=== PATIENT | female | born 1955 | race Caucasian/White ===

== ENCOUNTER → 2019-06-29 13:57 | Outpatient (BNVA) | payer OTHER, SELFPAY | PROVIDERS: Family Provider Internal Medicine; PCP Internal Medicine; Visit Provider Nurse Practitioner Psychiatric/Mental Health | DX: F41.0 Panic disorder [episodic paroxysmal anxiety] (principal); Z63.4 Disappearance and death of family member; F33.1 Major depressive disorder, recurrent, moderate; F17.210 Nicotine dependence, cigarettes, uncomplicated; M79.7 Fibromyalgia | CPT/HCPCS: 99213 ==

== ENCOUNTER → 2019-08-03 10:51 | Outpatient (BNVA) | payer OTHER, SELFPAY | PROVIDERS: Family Provider Internal Medicine; PCP Internal Medicine; Visit Provider Nurse Practitioner Psychiatric/Mental Health | DX: F33.1 Major depressive disorder, recurrent, moderate (principal); F41.0 Panic disorder [episodic paroxysmal anxiety]; Z63.4 Disappearance and death of family member; F33.2 Major depressive disorder, recurrent severe without psychotic features | CPT/HCPCS: 99213 ==

== ENCOUNTER 2019-08-21 15:00 | Outpatient (CLI) | payer OTHER, SELFPAY ==
--- NOTE | 2019-08-21 15:01 | MM_ITS ---
WS: [id number] BILATERAL DIGITAL SCREENING MAMMOGRAPHY WITH CAD CLINICAL INFORMATION: SCREENING HISTORY: Screening mammogram. No current complaints. COMPARISON: March 19, 2018 TECHNIQUE: Bilateral CC and MLO views. FINDINGS: Scattered fibroglandular densities bilaterally. No suspicious focal mass, asymmetry, calcifications, or architectural distortion. Biopsy clip left breast. No evidence of malignancy. MM/[place] [id number] IMPRESSION: BI-RADS: 2-Benign FOLLOW UP: 1 Year Follow-up Recommend return to annual screening mammography.
== END 2019-08-21 15:01 | disposition home or self-care (01) ==
LOC: RADSHAW 15:00
PROVIDERS: Family Provider Internal Medicine; PCP Internal Medicine; Visit Provider Internal Medicine
DX: Z12.31 Encounter for screening mammogram for malignant neoplasm of breast (principal)
CPT/HCPCS: 77067

== ENCOUNTER → 2019-09-24 08:01 | Outpatient (BNVA) | payer OTHER, SELFPAY | PROVIDERS: Family Provider Internal Medicine; PCP Internal Medicine; Visit Provider Nurse Practitioner Psychiatric/Mental Health | DX: F33.1 Major depressive disorder, recurrent, moderate (principal); F41.0 Panic disorder [episodic paroxysmal anxiety]; Z63.4 Disappearance and death of family member; M79.7 Fibromyalgia | CPT/HCPCS: 99214 ==

== ENCOUNTER → 2019-10-21 08:19 | Outpatient (BNVA) | payer OTHER, SELFPAY | PROVIDERS: Family Provider Internal Medicine; PCP Internal Medicine; Visit Provider Nurse Practitioner Psychiatric/Mental Health | DX: F33.1 Major depressive disorder, recurrent, moderate (principal); F41.0 Panic disorder [episodic paroxysmal anxiety]; Z63.4 Disappearance and death of family member; M79.7 Fibromyalgia | CPT/HCPCS: 99214 ==

== ENCOUNTER 2020-02-10 14:27 | Outpatient (CLI) | payer OTHER, SELFPAY ==
--- NOTE | 2020-02-10 14:35 | XR_ITS ---
WS: [id number] DEXA (DUAL ENERGY X-RAY ABSORPTIOMETRY) Bone mineral density was performed using a [employer]SC[employer] machine. HISTORY: ASYMPTOMATIC POSTMENOPAUSAL STATUS COMPARISON: None available. Lumbar spine BMD (L1-L4): 0.814 g/cm2 T score: -3.0 Z score: -1.9 Total hip BMD: Left: 0.709 g/cm2. T score: -2.4 Z score: -1.5 Right: 0.670 g/cm2. T score: -2.7 Z score: -1.8 10 year probability of a major osteoporotic fracture is 16%. XR/XR DEXA axial skeleton* [id number] IMPRESSION: OSTEOPOROSIS based upon the WHO classification for females.
== END 2020-02-10 14:28 | disposition home or self-care (01) ==
LOC: RADWPI 14:33
PROVIDERS: Family Provider Internal Medicine; PCP Internal Medicine; Visit Provider Internal Medicine
DX: Z78.0 Asymptomatic menopausal state (principal); M81.0 Age-related osteoporosis without current pathological fracture
CPT/HCPCS: 77080

== ENCOUNTER 2020-02-17 11:14 | Outpatient (CLI) | payer OTHER, SELFPAY ==
--- NOTE | 2020-02-17 11:25 | XR_ITS ---
WS: [id number] THORACIC SPINE TECHNIQUE: 3 views of the thoracic spine CLINICAL INFORMATION: BACK PAIN COMPARISON: None. FINDINGS: Osteopenia. Mild thoracic curve convex right. Mild thoracic kyphosis. Chronic anterior wedging in the upper thoracic spine. No acute appearing compression fractures. XR/XR thoracic spine 3V* [id number] IMPRESSION: 1. Osteopenia with mild thoracic curve convex right. Mild thoracic kyphosis. 2. Chronic appearing anterior wedging in the upper thoracic spine. 3. No acute appearing compression fractures.
--- NOTE | 2020-02-17 11:25 | XR_ITS ---
WS: [id number] LUMBAR SPINE TECHNIQUE: 3 views of the lumbar spine CLINICAL INFORMATION: BACK PAIN COMPARISON: None. FINDINGS: Osteopenia. Mild lumbar curve convex left. 5 nonrib-bearing lumbar vertebral bodies. Grade 1 anteroli sthesis L4 on L5 measuring 7.3 mm. Disc space narrowing worse L4-L5 and L5-S1. No acute appearing com pression fractures. Moderate facet arthropathy L4-L5 and L5-S1. XR/XR lumbar spine 2-3V* [id number] IMPRESSION: 1. Osteopenia. Mild lumbar curve convex left. 2. Grade 1 anterolisthesis L4 on L5 measuring 7.3 mm. 3. Disc space narrowing worse L4-L5 and L5-S1.
== END 2020-02-17 11:15 | disposition home or self-care (01) ==
LOC: RAD 11:17
PROVIDERS: Family Provider Internal Medicine; PCP Internal Medicine; Visit Provider Internal Medicine
DX: M54.6 Pain in thoracic spine (principal); M54.5 Low back pain; M85.88 Other specified disorders of bone density and structure, other site; M40.294 Other kyphosis, thoracic region
CPT/HCPCS: 72072; 72100

== ENCOUNTER 2020-09-16 11:12 | Outpatient (CLI) | payer OTHER, SELFPAY ==
--- NOTE | 2020-09-16 11:22 | XR_ITS ---
WS: [id number] Lumbar spine, AP and lateral views, 09/16/2020 Clinical Data: BACK PAIN WITH RADICULOPATHY, ARTHRODESIS STATUS Comparison: Lumbar spine, 02/17/2020. Findings: The patient has had a posterior lumbar fusion with bilateral pedicle screws at L4, L5 and S1. There a re rods connecting the pedicle screws. Laminectomy at L4 is noted. The 0.7 cm subluxation of L4 on L5 remains the same. There is degenerative disc narrowing at L4-L5 and L5-S1. The SI joints and transverse processes are not remarkable. XR/XR lumbar spine 2-3V* [id number] Impression: 1. Posterior lumbar fusion from L4 through S1. 2. Subluxation of L4 on L5 unchanged. 3. Degenerative disc narrowing at L4-L5 and L5-S1 unchanged.
== END 2020-09-16 11:13 | disposition home or self-care (01) ==
PROVIDERS: PCP Internal Medicine; Visit Provider Surgery
DX: Z98.1 Arthrodesis status (principal); M54.10 Radiculopathy, site unspecified; M43.27 Fusion of spine, lumbosacral region; S33.140A Subluxation of L4/L5 lumbar vertebra, initial encounter; X58.XXXA Exposure to other specified factors, initial encounter
CPT/HCPCS: 72100

== ENCOUNTER 2022-04-13 13:40 | Outpatient (CLI) | payer MEDICARE, SELFPAY ==
--- NOTE | 2022-04-13 13:48 | MM_ITS ---
WS: [id number] BILATERAL 3D TOMOSYNTHESIS DIGITAL SCREENING MAMMOGRAPHY WITH CAD CLINICAL INFORMATION: SCREENING HISTORY: Screening mammogram. No current complaints. COMPARISON: August 21, 2019 TECHNIQUE: Bilateral CC and MLO views. FINDINGS: Scattered fibroglandular densities bilaterally. A few incidental hepatic calcifications are stable. B iopsy clip LEFT breast. No suspicious focal mass, asymmetry, calcifications, or architectural distort ion. No evidence of malignancy. MM/[place] [id number] IMPRESSION: BI-RADS: 2-Benign FOLLOW UP: 1 Year Follow-up Recommend return to annual screening mammography.
--- NOTE | 2022-04-13 14:08 | XR_ITS ---
WS: [id number] DEXA (DUAL ENERGY X-RAY ABSORPTIOMETRY) Bone mineral density was performed using a [employer] machine. HISTORY: OSTEOPOROSIS COMPARISON: 02/10/2020 Prior lumbar spine surgery with hardware. Total hip BMD: Left: 0.734 g/cm2. T score: -2.2 Z score: -1.3 Right: 0.700 g/cm2. T score: -2.4 Z score: -1.5 10 year probability of a major osteoporotic fracture is 22.5%. Compared to the prior study from 02/10/2020. Bilateral hips bone mineral density has increased by 4.1%. XR/XR DEXA axial skeleton* [id number] IMPRESSION: OSTEOPENIA based upon the WHO classification for females.
== END 2022-04-13 13:41 | disposition home or self-care (01) ==
LOC: RAD 13:41
PROVIDERS: PCP Internal Medicine; Visit Provider Internal Medicine
DX: Z12.31 Encounter for screening mammogram for malignant neoplasm of breast (principal); M85.80 Other specified disorders of bone density and structure, unspecified site
CPT/HCPCS: 77063; 77067; 77080

== ENCOUNTER 2022-10-10 14:56 | Outpatient (CLI) | payer MEDICARE, SELFPAY ==
--- NOTE | 2022-10-10 15:03 | CT_ITS ---
WS: [id number] LDCT LUNG CANCER SCREENING TECHNIQUE: Noncontrast CT of the chest with coronal and sagittal reformatted images. CLINICAL INFORMATION: TOBACCO ABUSE, CONTINUOUS COMPARISON: None. DLP: 73.32 mGy.cm DIvol: Mean CTDIvol: 1.60 (mGy) All CT scans at [facility] use at least one of these dose optimization techniques: automat ed exposure control; mA and/or kV adjustment per patient size (includes targeted exams where dose is matched to clinical indication); or iterative reconstruction. FINDINGS:Bronchiectasis RIGHT lower lobe with parenchymal scarring. Moderate chronic emphysematous ch anges. Minimal scarring in the lingula. Slight hazy opacity in the LEFT upper lobe Normal caliber thoracic aorta. No mediastinal or hilar lymphadenopathy. Calcified paratracheal and olguin bcarinal lymph nodes. Calcified RIGHT hilar lymph nodes. Normal caliber thoracic aorta. Adrenal glands are normal. Hepatomegaly. Partially visualized LEFT renal cyst. No axillary lymphadeno aftab. Mild thoracic curve. Mild thoracic kyphosis. CT/CT lung screening [id number] IMPRESSION: LUNG-RADS: 2-Benign Appearance or Behavior FOLLOW UP: 12 Month: Continue annual screening with LDCT
== END 2022-10-10 14:57 | disposition home or self-care (01) ==
PROVIDERS: PCP Internal Medicine; Visit Provider Internal Medicine
DX: J43.9 Emphysema, unspecified (principal); Z87.891 Personal history of nicotine dependence; N28.1 Cyst of kidney, acquired
CPT/HCPCS: 71271

== ENCOUNTER → 2023-02-13 14:59 | Outpatient (BNVA) | payer MEDICARE, SELFPAY | PROVIDERS: Referring Provider Internal Medicine; Visit Provider Internal Medicine | DX: R68.89 Other general symptoms and signs (principal); E78.5 Hyperlipidemia, unspecified; Z68.30 Body mass index [BMI] 30.0-30.9, adult | CPT/HCPCS: 99204 ==

== ENCOUNTER 2023-04-23 11:45 | Outpatient (CLI) | payer MEDICARE, OTHER, SELFPAY ==
--- NOTE | 2023-04-23 11:59 | MM_ITS ---
WS: [id number] Bilateral screening 3D tomosynthesis digital mammogram, 04/23/2023 Clinical Data: SCREENING Comparison: 04/13/2022, 08/21/2019, 06/19/2017, 12/27/2016, 12/23/2015, 07/25/2015, 11/23/2013, 08/20/2012, 011, 04/18/2010, 03/16/2009, 01/13/2008, 02/14/2006 Findings: The breast parenchymal pattern shows fibroglandular tissue. No spiculated masses or clustered calcifi cations are seen. There are no secondary signs of carcinoma. Impression: 1. Negative bilateral mammogram unchanged. 2. Recommend annual screening mammograms. MM/[place] [id number] BIRADS: 1-Negative FOLLOW UP: 1 Year Follow-up The CAD credit rating checker was used.
== END 2023-04-23 11:46 | disposition home or self-care (01) ==
LOC: RAD 11:47
PROVIDERS: PCP Internal Medicine; Visit Provider Internal Medicine
DX: Z12.31 Encounter for screening mammogram for malignant neoplasm of breast (principal)
CPT/HCPCS: 77063; 77067

== ENCOUNTER → 2023-06-26 09:45 | Outpatient (BNVA) | payer MEDICARE, OTHER, SELFPAY | PROVIDERS: PCP Internal Medicine; Visit Provider Internal Medicine | DX: E78.5 Hyperlipidemia, unspecified (principal); R68.89 Other general symptoms and signs; Z68.24 Body mass index [BMI] 24.0-24.9, adult; Z79.85 Long-term (current) use of injectable non-insulin antidiabetic drugs | CPT/HCPCS: 99214 ==

== ENCOUNTER 2024-08-19 09:33 | Outpatient (CLI) | payer MEDICARE, OTHER, SELFPAY ==
--- NOTE | 2024-08-19 09:39 | MM_ITS ---
WS: [id number] BILATERAL SCREENING DIGITAL TOMOSYNTHESIS MAMMOGRAM WITH CAD HISTORY: SCREEN COMPARISON: 04/23/2023, 04/13/2022 Bilateral CC and MLO views with tomosynthesis and synthetic mammography submitted. Computer aided detection analyzed. Breast composition: There are scattered areas of fibroglandular density. No suspicious masses, microcalcifications or architectural distortion. Benign calcifications in each breast. Prior biopsy clip in the anterior LEFT breast. MM/MM scr BI tomosynthesis [id number] IMPRESSION: BI-RADS: 2 - Benign. FOLLOW UP: 1 Year Follow-up
== END 2024-08-19 09:34 | disposition home or self-care (01) ==
LOC: RAD 09:34
PROVIDERS: PCP Internal Medicine; Visit Provider Internal Medicine
DX: Z12.31 Encounter for screening mammogram for malignant neoplasm of breast (principal); J44.9 Chronic obstructive pulmonary disease, unspecified; R94.2 Abnormal results of pulmonary function studies; R92.323 Mammographic fibroglandular density, bilateral breasts; R92.1 Mammographic calcification found on diagnostic imaging of breast
CPT/HCPCS: 77063; 77067; 94010; 94726; 94729

== ENCOUNTER 2024-12-18 03:43 | Emergency (ER) | payer MEDICARE, OTHER, SELFPAY ==
[2024-12-18 03:46] VITALS: BP 170/99; PULSE 82; RESP 16; TEMP 36.6; O2SAT 95
--- OUTSIDE RECORDS SUMMARY | 2024-12-18 03:53 | XMS_ITS | Clinical Summary ---
Author Organization [facility] Address [address] [place] [address] Care Team Providers Care Grades 1 Through 5 Teacher Name Role Phone Diana Hall MD Primary Care Provider +1- [phone] Allergies Active Allergy Reactions Criticality Noted Date Comments Morphine Other (See Comments) 03/11/2012 Depression. Can take for a short time. Nalbuphine Other (See Comments) 03/11/2012 hallucinations Penicillins Swelling Low 03/11/2012 Medications telmisartan (MICARDIS) 80 mg Oral Tab Take 80 mg by mouth daily. Active simvastatin (ZOCOR) 20 mg Oral tablet Take 20 mg by mouth Daily LATE. Active oxyCODONE CR (OXYCONTIN) 80 mg Oral tablet Take 80 mg by mouth every 12 hours. Active oxyCODONE-acetam inophen (PERCOCET) 10-325 mg Oral Tab Take 1 Tab by mouth 4 times daily as needed. Active aspirin (LOS) 81 mg Oral Tab Take by mouth. Active ibuprofen (IBUPROFEN IB) 200 mg Oral tablet Take 200 mg by mouth every 6 hours as needed. Active naproxen sodium (ALEVE) 220 mg Oral Cap Take by mouth. prn Active ALPRAZolam (XANAX) 1 mg Oral tablet Take 1 mg by mouth 3 times daily as needed. Active Active Problems Problem Noted Date Diagnosed Date Low back pain radiating to right leg 03/11/2012 Lumbar spinal stenosis 03/11/2012 Degenerative spondylolisthesis 03/11/2012 Herniated lumbar intervertebral disc 03/11/2012 Family History Medical History Relation Name Comments Cancer Father Heart Disease Father Cancer Maternal Grandfather Heart Disease Maternal Grandmother Cancer Paternal Grandfather Heart Disease Paternal Grandfather Heart Disease Paternal Grandmother Relation Name Status Comments Father Maternal Grandfather Maternal Grandmother Paternal Grandfather Paternal Grandmother Social History Tobacco Use Types Packs/Day Years Used Date Smoking Tobacco: Every Day Cigarettes 0.5 0.5 Smokeless Tobacco: Never Alcohol Use Standard Drinks/Week Comments No 0 (1 standard drink = 0.6 oz pur e alcohol) Comments Unknown Sex and Gender Information Value Date Recorded Sex Assigned at Not on file Legal Sex Female 5:48 AM 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 RN Gender Identity Not on file Sexual Orientation Not on file Occupation Industry Job Start Date Job End Date Not on file Not on file Not on file Not on file Last Filed Vital Signs Vital Sign Reading Time Taken Comments Blood Pressure 110/60 10/31/2012 1:14 PM CDT Pulse 100 10/31/2012 1:14 PM CDT Temperature 36.7 C (98.1 F) 10/31/2012 1:14 PM CDT Respiratory Rate 16 10/31/2012 1:14 PM CDT Oxygen Saturation 98% 10/31/2012 1:14 PM CDT Inhaled Oxygen Concentration - - Weight 59 kg (130 lb) 10/31/2012 1:14 PM CDT Height 162.6 cm (5' 4 ) 10/31/2012 1:14 PM CDT Body Mass Index 22.31 10/31/2012 1:14 PM CDT Plan of Treatment Health Maintenance Due Date Last Done Comments DTAP/TDAP/TD VACCINES (1 - Tdap) 1976 PNEUMOCOCCAL VACCINE 50+ YEARS (1 of 2 - PCV) 03/18/19 76 BREAST CANCER SCREENING 1997 COLORECTAL SCREENING 2002 Colorectal Cancer Screening 2002 FIT-DNA Q 3 years 2002 FIT/FOBT Q 1 year 2002 Flex Sig/CT Colonography Q 5 years 2002 ZOSTER VACCINE (1 of 2) 2007 OSTEOPOROSIS SCREENING 2022 INFLUENZA VACCINE (#1) 2024 RSV VACCINE (60+ or ) (1 - 1-dose 75+ series) 2032 Insurance [facility] Care Teams Grades 1 Through 5 Teacher Relationship Specialty Start Date End Date Diana Hall MD [address] [place] [address] PCP - General Internal Medicine 03/11/12
--- OUTSIDE RECORDS SUMMARY | 2024-12-18 03:53 | XMS_ITS | Encounter Summary ---
Author Organization [facility] Address [address] [place] [address] Care Team Providers Care Engraved Roller Inspector Name Role Phone Diana Hall MD Primary Care Provider +1- [phone] Encounter Details Date Type Department Care Team (Latest Contact Info) Description 11/14/2001 Outpatient Historical [facility] Rheumatology- [place] Brennen Dee [address] [place] [address] María Elena Graves MD [address] [place] [address] RHEUMATISM NOS (Primary Dx) Social History Tobacco Use Types Packs/Day Years Used Date Smoking Tobacco: Never Assessed Comments Unknown Sex and Gender Information Value Date Recorded Sex Assigned at Not on file Legal Sex Female 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
--- OUTSIDE RECORDS SUMMARY | 2024-12-18 03:53 | XMS_ITS | Encounter Summary ---
Author Organization [employer] [facility] Address [address] [place] [address] Care Team Providers Care Furnace Repair Mechanic Name Role Phone Diana Hall MD Primary Care Provider +1- [phone] Encounter Details Date Type Department Care Team (Latest Contact Info) Description 03/13/2002 Outpatient Historical [facility] Jesus Sal MD [address] [place] [id number] MYALGIA AND MYOSITIS NOS (Primary Dx) Social History Tobacco Use Types Packs/Day Years Used Date Smoking Tobacco: Never Assessed Comments Unknown Sex and Gender Information Value Date Recorded Sex Assigned at Not on file Legal Sex Female 5:48 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
--- OUTSIDE RECORDS SUMMARY | 2024-12-18 03:53 | XMS_ITS | Encounter Summary ---
Author Organization [facility] Address [address] [place] [address] Care Team Providers Care Aquacultural Worker Supervisor Name Role Phone Diana Hall MD Primary Care Provider +1- [phone] Encounter Details Date Type Department Care Team (Latest Contact Info) Description 03/10/[address] 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
--- NOTE | 2024-12-18 03:55 | W.ED.DENTAL ---
HPI - Dental/Oral General: Chief complaint: Dental/Oral Stated complaint: R side upper tooth pain up and to eye Time Seen by Provider: 12/18/24 03:45 History of Present Illness: Right upper dental pain x 1 day. No fever. No nausea or vomiting. Patient states that the tooth is always been fairly sensitive but over the last 24 hours has become increasingly painful. Related Data Home Medications ?Medication ?Instructions ?Recorded ?Confirmed telmisartan 80 mg tablet (Micardis) 80 mg PO DAILY 06/29/19 09/13/23 simvastatin 20 mg tablet 20 mg PO DAILY 11/11/19 09/13/23 Previous Rx's ?Medication ?Instructions ?Recorded duloxetine 30 mg capsule,delayed 30 mg PO .morning #30 caps 10/21/19 release (Cymbalta) diazepam 2 mg tablet 2 mg PO BID PRN anxiety #60 tabs 11/12/19 liraglutide 0.6 mg/0.1 mL (18 mg/3 1.8 mg (0.3 mL) SUBCUT DAILY 30 05/21/23 mL) subcutaneous pen injector days #6 mL (Victoza 2-Brenton) valacyclovir 1 gram tablet 1,000 mg PO Q8H 10 days #30 tabs 08/31/23 hydrocodone 7.5 mg-acetaminophen 1 tab PO Q6H PRN pain 7 days #28 09/13/23 325 mg tablet tabs clindamycin HCl 300 mg capsule 300 mg PO Q6H 10 days #40 caps 12/18/24 (Cleocin HCl) Allergies Allergy/AdvReac Type Severity Reaction Status Date / Time morphine Allergy Intermediate Mde Verified 09/13/23 09:58 depressed nalbuphine (From Nubain) Allergy Intermediate Hallucinati Verified 09/13/23 09:58 ons Penicillins Allergy Intermediate Swelling & Verified 09/13/23 09:58 hives PFS ED PFSH: Medical History Fibromyalgia Major depressive disorder, recurrent, moderate Panic disorder without agoraphobia of parent Social History Smoking and tobacco/nicotine status: current every day tobacco/nicotine user cigarettes Physical Exam Const: COMMON NORMALS: no acute distress, average body habitus, patient oriented x3, no limitations, healthy appearing, alert and well nourished HENMT: OTHER: Right upper molar with tenderness. Erythema around the gumline without any obvious abscess. Neck/C-Spine: COMMON NORMALS: full ROM, no lymphadenopathy, supple, no meningeal signs, Thyroid normal and No carotid bruits THYROID: Thyroid normal Resp: COMMON NORMALS: normal respiratory effort, No retractions, No use of accessory muscles, clear to auscultation bilaterally and percussion normal AUSCULTATION: clear to auscultation bilaterally PERCUSSION: percussion normal Neuro: COMMON NORMALS: patient oriented x3 SENSORIUM/ORIENTATION: Yes alert MENINGEAL SIGNS: Yes no meningeal signs Course Vital Signs: Vital signs: Vital Signs Temperature 97.8 F 12/18/24 03:46 Pulse Rate 82 12/18/24 03:46 Respiratory Rate 16 12/18/24 03:46 Blood Pressure 170/99 12/18/24 03:46 Pulse Oximetry 95 12/18/24 03:46 Oxygen Delivery Me thod Room Air 12/18/24 03:46 MDM - Dental/Oral Medical Decision Making Patient with right upper dental pain likely infection x 1 day. Due to penicillin allergy will start on clindamycin. Recommended patient follow-up with dentist soon as possible. See no evidence of abscess that needs drained at this time. No trismus or evidence of peritonsillar retropharyngeal abscess. No Shola's angina. No difficulty swallowing or breathing. No radiology studies performed this visit Discharge Plan Discharge Patient Disposition: Home Clinical Impression: Dental infection Condition: Stable Prescriptions: New clindamycin HCl [Cleocin HCl] 300 mg capsule 300 mg PO Q6H 10 Days Qty: 40 0RF No Action telmisartan [Micardis] 80 mg tablet 80 mg PO DAILY duloxetine [Cymbalta] 30 mg capsule,delayed release(DR/EC) 30 mg PO .morning Qty: 30 3RF Rx Instructions: Take one capsule every morning simvastatin 20 mg tablet 20 mg PO DAILY diazepam 2 mg tablet 2 mg PO BID PRN (Reason: anxiety) Qty: 60 0RF valacyclovir 1 gram tablet 1,000 mg PO Q8H 10 Days Qty: 30 0RF hydrocodone-acetaminophen 7.5-325 mg tablet 1 tab PO Q6H PRN (Reason: pain) 7 Days Qty: 28 0RF Victoza 2-Brenton 0.6 mg/0.1 mL (18 mg/3 mL) pen injector 1.8 mg SUBCUT DAILY 30 Days Qty: 6 1RF Discharge Orders: Discharge ED (Routine); Ordered 12/18/24 Ordered By: Kaiser Bernal Referrals: Diana Hall MD [Primary Care Provider, Internal Medicine] Discharge Diet: Advance as tolerated Patient Instructions: Opioid Safety, Pain Management, Patient Portal & Elida Instructions Print Language: Mauritian Coding Level of Care Code ED Hot Saw Operator for Brenna Raines
[2024-12-18] MEDS: HYDROcodone-acetaminophen 5-325 mg Tablet 1 TAB PO (04:00)
[2024-12-18 04:05] VITALS: BP 136/94; PULSE 76; O2SAT 96
== END 2024-12-18 04:07 | disposition home or self-care (01) ==
PROVIDERS: Emergency Provider Emergency Medicine; PCP Internal Medicine
DX: K04.7 Periapical abscess without sinus (principal); F17.210 Nicotine dependence, cigarettes, uncomplicated; K02.9 Dental caries, unspecified
CPT/HCPCS: 99283; J9999

== ENCOUNTER 2024-12-18 08:05 | Emergency (ER) | payer MEDICARE, OTHER, SELFPAY ==
--- OUTSIDE RECORDS SUMMARY | 2024-12-18 08:09 | XMS_ITS | Clinical Summary ---
Author Organization [facility] Address [address] [place] [address] Care Team Providers Care Collector Of Port Name Role Phone Diana Hall MD Primary Care Provider +1- [phone] Allergies Active Allergy Reactions Criticality Noted Date [...] on file Legal Sex Female 5:48 AM HOGSHEAD ROLLER Gender Identity Not on file Sexual Orientation [...] 2007 OSTEOPOROSIS SCREENING 2022 INFLUENZA VACCINE (#1) 2025 RSV VACCINE (60+ or ) (1 - 1-dose 75+ series) 2032 Insurance [facility] Care Teams Collector Of Port Relationship Specialty Start Date End Date Diana Hall MD [address] [place] [address] PCP - General Internal Medicine 03/11/12
--- OUTSIDE RECORDS SUMMARY | 2024-12-18 08:09 | XMS_ITS | Encounter Summary ---
Author Organization [facility] Address [address] [place] [address] Care Team Providers Care Pattern Cutter Name Role Phone Diana Hall MD Primary Care Provider +1- [phone] Encounter Details Date Type Department Care Team (Latest Contact Info) Description 03/10/2002 Outpatient Historical [facility] Rheumatology- [place] Brennen Dee [address] [place] [address] María Elena Graves MD [address] [place] [address] RHEUMATISM NOS (Primary Dx) Social History Tobacco Use Types Packs/Day Years Used Date Smoking Tobacco: Never Assessed Comments Unknown Sex and Gender Information Value Date Recorded Sex Assigned at Not on file Legal Sex Female 5:48 AM BRIDAL GOWN FITTER Gender Identity Not on file Sexual Orientation Not on file documented as of this encounter Plan of Treatment Not on file documented as of this encounter Visit Diagnoses Diagnosis Rheumatism, unspecified and fibrositis- Primary documented in this encounter Care Teams Pattern Cutter Relationship Specialty Start Date End Date Diana Hall MD [address] [place], [place] [address] PCP - General Internal Medicine 03/11/12 documented as of this encounter
--- OUTSIDE RECORDS SUMMARY | 2024-12-18 08:09 | XMS_ITS | Encounter Summary ---
Author Organization [facility] Address [address] [place] [address] Care Team Providers Care Mirror Department Supervisor Name Role Phone Diana Hall MD Primary Care Provider +1- [phone] Encounter Details Date Type Department Care Team (Latest Contact Info) Description 11/14/2001 Outpatient Historical [facility] Rheumatology- [place] Brennen Dee [address] [place] [address] María Elena Graves MD [address] [place] [address] RHEUMATISM NOS (Primary Dx) Social History Tobacco Use Types Packs/Day Years Used Date Smoking Tobacco: Never Assessed Comments Unknown Sex and Gender Information Value Date Recorded Sex Assigned at Not on file Legal Sex Female 5:48 AM 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
--- OUTSIDE RECORDS SUMMARY | 2024-12-18 08:09 | XMS_ITS | Encounter Summary ---
Author Organization [employer] [facility] Address [address] [place] [address] Care Team Providers Care Hot Metal Charger Name Role Phone Diana Hall MD Primary Care Provider +1- [phone] Encounter Details Date Type Department Care Team (Latest Contact Info) Description 03/13/2002 Outpatient Historical [facility] Jesus Sal MD [address] [place] [id number] MYALGIA AND MYOSITIS NOS (Primary Dx) Social History Tobacco Use Types Packs/Day Years Used Date Smoking Tobacco: Never Assessed Comments Unknown Sex and Gender Information Value Date Recorded Sex Assigned at Not on file Legal Sex Female 5:48 AM VELVET CUTTER Gender Identity Not on file Sexual Orientation Not on file documented as of this encounter Plan of Treatment Not on file documented as of this encounter Visit Diagnoses Diagnosis Myalgia and myositis, unspecified- Primary Mylagia and myositis, unspecified documented in this encounter Care Teams Hot Metal Charger Relationship Specialty Start Date End Date Diana Hall MD [address] [place] [address] PCP - General Internal Medicine 03/11/12 documented as of this encounter
[2024-12-18 08:16] VITALS: BP 146/91; PULSE 78; RESP 18; TEMP 37.1; O2SAT 96; BMI 30.1
--- NOTE | 2024-12-18 08:33 | ED_ITS ---
HPI - Dental/Oral General: Chief complaint: Dental/Oral Stated complaint: dental Time Seen by Provider: 12/18/24 08:12 History of Present Illness: 69-year-old female seen earlier today wi th infection in her right maxilla with some swelling extending up towards the zygomatic arch antibiotics were sent and unfortunately the pharmacy is not open. She was complaining of increasing pain. No fever. Associated symptoms: Denies fever(s) Related Data Home Medications ?Medication ?Instructions ?Recorded ?Confirmed telmisartan 80 mg tablet (Micardis) 80 mg PO DAILY 09/13/23 simvastatin 20 mg tablet 20 mg PO DAILY 11/11/1908/16 Previous Rx's ?Medication ?Instructions ?Recorded duloxetine 30 mg capsule,delayed 30 mg PO .morning #30 caps 10/21/19 release (Cymbalta) diazepam 2 mg tablet 2 mg PO BID PRN anxiety #60 tabs 11/12/19 liraglutide 0.6 mg/0.1 mL (18 mg/3 1.8 mg (0.3 mL) SUB CUT DAILY 30 05/21/23 mL) subcutaneous pen injector days #6 mL (Victoza 2-Brenton) valacyclovir 1 gram tablet 1,000 mg PO Q8H 10 days #30 tabs 08/31/23 hydrocodone 7.5 mg-acetaminophen 1 tab PO Q6H PRN pain 7 days #28 09/13/23 325 mg tablet tabs clindamycin HCl 300 mg capsule 300 mg PO Q6H 10 days # 40 caps 12/18/24 (Cleocin HCl) clindamycin HCl 300 mg capsule 300 mg PO Q6H 10 days # 40 caps 12/18/24 (Cleocin HCl) hydrocodone 5 mg-acetaminophen 325 1 tab PO Q6H PRN pa in #12 tabs 25 mg tablet Allergies Allergy/AdvReac Type Severity Reaction Status Date / Time morphine Allergy Intermediate Mde Verified 09/13/23 09:58 depressed nalbuphine (From Nubain) Allergy Intermediate Hallucinati Verified 09/13/23 09:58 ons Penicillins Allergy Intermediate Swelling & Verified 09/13/23 09:58 hives Review of Systems Const: Denies: fever(s) or chills Card: Denies: chest pain Resp: Denies: dyspnea GI: Denies: abdominal pain : Denies: dysuria, urinary frequency or urinary urgency Musc: Denies: neck pain or back pain Skin/Breast: Denies: rash PFSH ED PFSH: Medical History Fibromyalgia Major depressive disorder, recurrent, moderate Panic disorder without agoraphobia of parent Social History Smoking and tobacco/nicotine status: current every day tobacco/nicotine user cigarettes Physical Exam Const: COMMON NORMALS: no acute distress GENERAL APPEARANCE: cooperative and comfortable ORIENTATION/CONSCIOUSNESS: Yes awake, Yes oriented to person, Yes oriented to place and Yes oriented to time HENMT: COMMON NORMALS: normocephalic and hearing grossly normal bilaterally HEAD & SCALP: normocephalic OTHER: Moderate swelling along zygomatic arch extending up to the eye tender to touch along the upper maxilla on the right. No gingival abscess noted in the mouth. Resp: COMMON NORMALS: normal respiratory effort, No retractions, No use of accessory muscles and clear to auscultation bilaterally AUSCULTATION: clear to auscultation bilaterally Cardio: COMMON NORMALS: regular rate, regular rhythm and No murmurs present (Cardio) RATE: regular rate RHYTHM: regular rhythm GI: COMMON NORMALS: Soft to palpation and No hepatosplenomegaly present AUSCULTATION: Yes normoactive bowel sounds PALPATION: Yes Soft to palpation, No Tenderness to palpation present (GI), No Guarding due to palpation present (GI) and Yes No hepatosplenomegaly present Extremity: COMMON NORMALS: normal to inspection, capillary refill normal, no clubbing, cyanosis or edema, no calf tenderness and no pedal edema Neuro: SENSORIUM/ORIENTATION: Yes oriented to person, Yes oriented to place and Yes oriented to time Skin: COMMON NORMALS: no rashes or lesions noted GENERAL SKIN EXAM: no rashes or lesions noted Course Vital Signs: Vital signs: Vital Signs Temperature 98.7 F 12/18/24 08:16 Pulse Rate 78 12/18/24 08:16 Respiratory Rate 18 12/18/24 08:16 Blood Pressure 146/91 12/18/24 08:16 Pulse Oximetry 96 12/18/24 08:16 Oxygen Delivery Me thod Room Air 12/18/24 08:16 MDM - Dental/Oral Medical Decision Making Represcribed medications to pharmacy that is open. Patient has not had significant deterioration since last seen and reviewed the notes continue medications previously prescribed. Medical Records I reviewed the patient's medical records. Lab Data I reviewed the patient's lab results. No radiology studies performed this visit Discharge Plan Discharge Patient Disposition: Home Clinical Impression: Dental caries Condition: Stable Prescriptions: New clindamycin HCl [Cleocin HCl] 300 mg capsule 300 mg PO Q6H 10 Days Qty: 40 0RF hydrocodone-acetaminophen 5-325 mg tablet 1 tab PO Q6H PRN (Reason: pain) Qty: 12 0RF No Action telmisartan [Micardis] 80 mg tablet 80 mg PO DAILY duloxetine [Cymbalta] 30 mg capsule,delayed release(DR/EC) 30 mg PO .morning Qty: 30 3RF Rx Instructions: Take one capsule every morning simvastatin 20 mg tablet 20 mg PO DAILY diazepam 2 mg tablet 2 mg PO BID PRN (Reason: anxiety) Qty: 60 0RF valacyclovir 1 gram tablet 1,000 mg PO Q8H 10 Days Qty: 30 0RF hydrocodone-acetaminophen 7.5-325 mg tablet 1 tab PO Q6H PRN (Reason: pain) 7 Days Qty: 28 0RF Victoza 2-Brenton 0.6 mg/0.1 mL (18 mg/3 mL) pen injector 1.8 mg SUBCUT DAILY 30 Days Qty: 6 1RF clindamycin HCl [Cleocin HCl] 300 mg capsule 300 mg PO Q6H 10 Days Qty: 40 0RF Discharge Orders: Discharge ED (Routine); Ordered 12/18/24 Ordered By: Prashant Gore Referrals: Diana Hall MD [Primary Care Provider, Internal Medicine] Discharge Diet: Soft Mechanical Discharge Activity: Resume usual activity Patient Instructions: Opioid Safety, Pain Management, Patient Portal & Elida Instructions Activity Restrictions/Additional Instructions: Thank you for choosing [facility] for your healthcare needs today. It is very important that you follow up as instructed or that you return to the Emergency Department should you have concerns or if your condition changes or worsens in any way. You are seen again this morning for your dental infection. Your prescriptions were sent to [facility] 1 for pain 1 for antibiotic recommend you begin the antibiotic immediately. 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
== END 2024-12-18 08:32 | disposition home or self-care (01) ==
PROVIDERS: Emergency Provider Family Medicine; PCP Internal Medicine
DX: K02.9 Dental caries, unspecified (principal); F17.210 Nicotine dependence, cigarettes, uncomplicated
CPT/HCPCS: 99283

== ENCOUNTER 2024-12-20 11:20 | Emergency (ER) | payer MEDICARE, OTHER, SELFPAY ==
[2024-12-20 11:25] VITALS: BP 162/85; PULSE 88; RESP 16; TEMP 36.7; O2SAT 95; BMI 31.8
--- OUTSIDE RECORDS SUMMARY | 2024-12-20 11:28 | XMS_ITS | Clinical Summary ---
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
--- OUTSIDE RECORDS SUMMARY | 2024-12-20 11:28 | XMS_ITS | Encounter Summary ---
Author Organization [facility] Address [address] [place] [address] Care Team Providers Care Medical Pathology Teacher Name Role Phone Diana Hall MD Primary Care Provider [phone]- [phone] Encounter Details Date Type Department Care Team (Latest Contact Info) Description 11/14/2001 Outpatient Historical [facility] Rheumatology- [place] Brennen Dee [address] [place] [address] María Elena Graves MD [address] [place] [address] RHEUMATISM NOS (Primary Dx) Social History Tobacco Use Types Packs/Day Years Used Date Smoking Tobacco: Never Assessed Comments Unknown Sex and Gender Information Value Date Recorded Sex Assigned at Not on file 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
--- OUTSIDE RECORDS SUMMARY | 2024-12-20 11:28 | XMS_ITS | Encounter Summary ---
Author Organization [employer] [facility] Address [address] [place] [address] Care Team Providers Care Technician Support Engineer Name Role Phone Diana Hall MD Primary Care Provider +1- [phone] Encounter Details Date Type Department Care Team (Latest Contact Info) Description 03/13/2002 Outpatient Historical [facility] Jesus Sal MD [address] [place] [id number] MYALGIA AND MYOSITIS NOS (Primary Dx) Social History Tobacco Use Types Packs/Day Years Used Date Smoking Tobacco: Never Assessed Comments Unknown Sex and Gender Information Value Date Recorded Sex Assigned at Not on file 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
--- OUTSIDE RECORDS SUMMARY | 2024-12-20 11:28 | XMS_ITS | Encounter Summary ---
Author Organization [facility] Address [address] [place] [address] Care Team Providers Care Machine Striper Name Role Phone Diana Hall MD Primary Care Provider +1- [phone] Encounter Details Date Type Department Care Team (Latest Contact Info) Description 03/10/2002 Outpatient Historical [facility] Rheumatology- [place] Brennen Dee [address] [place] [id number] María Elena Graves MD [address] [place] [address] RHEUMATISM NOS (Primary Dx) Social History Tobacco Use Types Packs/Day Years Used Date Smoking Tobacco: Never Assessed Comments Unknown Sex and Gender Information Value Date Recorded Sex Assigned at Not on file 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
--- NOTE | 2024-12-20 11:43 | W.ED.DENTAL ---
HPI - Dental/Oral General: Chief complaint: Dental/Oral Stated complaint: dental Time Seen by Provider: 12/20/24 11:29 Source: patient Mode of arrival: ambulatory Limitations: no limitations History of Present Illness: 69-year-old female with had right dental pain over the last 3 days right upper molar. She also has redness to her right eye she has been seen for both of these she is currently on clindamycin and eyedrops. States that ibuprofen and Tylenol is not working for her pain rates her pain a 6 out of 10 currently denies any vision changes denies any difficulty swallowing Associated symptoms: Denies fever(s) Related Data Home Medications ?Medication ?Instructions ?Recorded ?Confirmed telmisartan 80 mg tablet (Micardis) 80 mg PO DAILY 06/29/19 12/20/24 simvastatin 20 mg tablet 20 mg PO DAILY 11/11/19 12/20/24 Previous Rx's ?Medication ?Instructions ?Recorded diazepam 2 mg tablet 2 mg PO BID PRN anxiety #60 tabs 11/12/19 clindamycin HCl 300 mg capsule 300 mg PO Q6H 10 days #40 caps 12/18/24 (Cleocin HCl) clindamycin HCl 300 mg capsule 300 mg PO Q6H 10 days #40 caps 12/18/24 (Cleocin HCl) hydrocodone 5 mg-acetaminophen 325 1 tab PO Q6H PRN pain #14 tabs 12/20/24 mg tablet [id number] 3.5 1 drp ophthalmic (eye) Q8H 5 days 12/20/24 mg/mL-10,000 unit/mL-0.1% eye #5 mL drops (Maxitrol) Allergies Allergy/AdvReac Type Severity Reaction Status Date / Time morphine Allergy Intermediate Mde Verified 12/20/24 11:27 depressed nalbuphine (From Nubain) Allergy Intermediate Hallucinati Verified 12/20/24 11:27 ons Penicillins Allergy Intermediate Swelling & Verified 12/20/24 11:27 hives Review of Systems Const: Denies: fever(s), chills, body aches or change in appetite Eyes: Reports: eye discomfort ENMT: Reports: dental pain; Denies: throat pain Card: Denies: chest pain Resp: Denies: dyspnea GI: Denies: abdominal pain, nausea, vomiting or diarrhea Musc: Denies: neck pain or back pain Skin/Breast: Denies: rash Neuro: Denies: headache(s) PFSH ED PFSH: Medical History Fibromyalgia Major depressive disorder, recurrent, moderate Panic disorder without agoraphobia of parent Social History Smoking and tobacco/nicotine status: current every day tobacco/nicotine user cigarettes Physical Exam Const: COMMON NORMALS: no acute distress, patient oriented x3 and healthy appearing HENMT: COMMON NORMALS: normocephalic and atraumatic HEAD & SCALP: normocephalic and atraumatic OTHER: Tenderness to right upper molar no obvious abscess no trismus Eye: COMMON NORMALS: Equal, round and reactive pupils present and EOMs intact bilaterally PUPIL: Yes Equal, round and reactive pupils present OTHER: Erythema to right cornea did stain her eye no signs of ulcers or abrasion intraocular pressure was 19 mmHg Neck/C-Spine: COMMON NORMALS: full ROM and supple Chest: COMMONS NORMALS: normal inspection of the chest and normal palpation of entire chest wall Resp: COMMON NORMALS: normal respiratory effort Cardio: COMMON NORMALS: regular rate RATE: regular rate Extremity: COMMON NORMALS: normal to inspection and full ROM Neuro: COMMON NORMALS: patient oriented x3, moves all extremities and no focal motor deficits Psych: COMMON NORMALS: mental status grossly normal, Normal thought process present and cooperative THOUGHT PROCESS: Normal thought process present Skin: COMMON NORMALS: no rashes or lesions noted and no wounds GENERAL SKIN EXAM: no rashes or lesions noted Course Vital Signs: Vital signs: Vital Signs Temperature 98.0 F 12/20/24 11:25 Pulse Rate 88 12/20/24 11:25 Respiratory Rate 16 12/20/24 11:25 Blood Pressure 162/85 12/20/24 11:25 Pulse Oximetry 95 12/20/24 11:25 Oxygen Delivery Me thod Room Air 12/20/24 11:25 MDM - Dental/Oral Medical Decision Making Patient presents here with conjunctivitis along with dental pain no signs of dental abscess. She stable for discharge she is follow-up with dentist continue antibiotics return if worsening she understands agrees to plan. Medical Records I reviewed the patient's medical records. No radiology studies performed this visit Discharge Plan Discharge Patient Disposition: Home Clinical Impression: Toothache, Acute bacterial conjunctivitis of right eye Condition: Stable Prescriptions: New hydrocodone-acetaminophen 5-325 mg tablet 1 tab PO Q6H PRN (Reason: pain) Qty: 14 0RF No Action telmisartan [Micardis] 80 mg tablet 80 mg PO DAILY simvastatin 20 mg tablet 20 mg PO DAILY diazepam 2 mg tablet 2 mg PO BID PRN (Reason: anxiety) Qty: 60 0RF neomycin-polymyxin B-dexameth [Maxitrol] 3.5mg/mL-10,000 unit/mL-0.1 % drops,suspension 1 drp ophthalmic (eye) Q8H 5 Days Qty: 5 0RF clindamycin HCl [Cleocin HCl] 300 mg capsule 300 mg PO Q6H 10 Days Qty: 40 0RF clindamycin HCl [Cleocin HCl] 300 mg capsule 300 mg PO Q6H 10 Days Qty: 40 0RF Discharge Orders: Discharge ED (Routine); Ordered 12/20/24 Ordered By: Genie Rosenbaum Referrals: Diana Hall MD [Primary Care Provider, Internal Medicine] - 4-7 days Discharge Diet: Advance as tolerated Discharge Activity: Resume usual activity Patient Instructions: Toothache (ED), Conjunctivitis (ED), Opioid Safety Print Language: Polish Coding Level of Care Code 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
[2024-12-20] MEDS: tetracaine 0.5% Op Soln 4 mL Btl 1 DROP EYE-RIGHT (11:47)
[2024-12-20] MEDS: HYDROcodone-acetaminophen 7.5-325 mg Tablet 1 TAB PO (11:56)
[2024-12-20] MEDS: cefTRIAXone 1,000 MG in water for injection-sterile 2.1 ML 2.1 MG IM (11:58)
[2024-12-20 12:09] VITALS: BP 133/78; PULSE 81; O2SAT 95
== END 2024-12-20 12:10 | disposition home or self-care (01) ==
PROVIDERS: Emergency Provider Emergency Medicine; PCP Internal Medicine
DX: H10.89 Other conjunctivitis (principal); K08.89 Other specified disorders of teeth and supporting structures; F17.210 Nicotine dependence, cigarettes, uncomplicated
CPT/HCPCS: 96372; 99284; J0696; J9999